=== PATIENT | female | born 2000 | race Caucasian/White ===

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

== ENCOUNTER → 2019-01-26 | Outpatient (CLI) | payer OTHER ==
[2019-01-26 17:36] LABS: BASO % 0.3 % (0.0-1.0); EOS % 0.1 % (0.0-3.0); HEMATOCRIT 41.1 % (36.0-47.0); HEMOGLOBIN 14.4 g/dl (12.0-15.5); LYMPH % 14.5 % (24.0-44.0); MEAN CORPUSCULAR VOLUME 94.3 fl (80.0-96.0); MONO # 0.7 10^3/uL (0.0-0.8); MONO % 10.6 % (0.0-5.0); NEUTROPHILS % 74.4 % (36.0-66.0); PLATELET COUNT, AUTOMATED 254 10^3/uL (150-450); RED BLOOD COUNT 4.36 10^6/uL (4.00-5.40); WHITE BLOOD COUNT 6.8 10^3/uL (4.0-10.0)
[2019-01-26 18:01] LABS: HCG, SERUM QUALITATIVE NEGATIVE (NEGATIVE)
[2019-01-26 18:04] LABS: ALBUMIN 4.7 GM/DL (3.2-5.2); ALT/SGPT 30 U/L (12-78); BILIRUBIN,TOTAL 0.8 MG/DL (0.2-1.0); BLOOD UREA NITROGEN 12 MG/DL (7-18); CALCIUM LEVEL 9.6 MG/DL (8.5-10.1); CARBON DIOXIDE LEVEL 28 MEQ/L (21-32); CHLORIDE LEVEL 102 MEQ/L (98-107); CREATININE FOR GFR 0.74 MG/DL (0.55-1.30); FREE T4 1.45 NG/DL (0.78-1.33); GLUCOSE, FASTING 89 MG/DL (70-100); H PYLORI QUALITATIVE IgG NEGATIVE (NEGATIVE); POTASSIUM SERUM 3.7 MEQ/L (3.5-5.1); SODIUM LEVEL 139 MEQ/L (136-145); THYROID STIMULATING HORMONE 0.764 uIU/ML (0.463-3.98); TOTAL PROTEIN 8.2 GM/DL (6.4-8.2)
== END ==
LOC: M LAB 16:30
PROVIDERS: ATTEND Physician Assistant Medical
DX: R11.0 Nausea (principal); R19.7 Diarrhea, unspecified

== ENCOUNTER → 2019-03-01 | Outpatient (REF) | payer OTHER ==
[2019-03-01 17:27] LABS: APPEARANCE, URINE HAZY (CLEAR); BACTERIA, URINE AUTO 1+ (NEGATIVE); BILIRUBIN, URINE AUTO NEGATIVE (NEGATIVE); BLOOD, URINE BLOOD 3+ (NEGATIVE); COLOR, URINE YELLOW (YELLOW); GLUCOSE, URINE (UA) AUTO NEGATIVE (NEGATIVE); KETONE, URINE AUTO NEGATIVE (NEGATIVE); LEUKOCYTE ESTERASE, URINE AUTO NEGATIVE (NEGATIVE); MUCUS, URINE SMALL (NEGATIVE); NITRITE, URINE AUTO NEGATIVE (NEGATIVE); PROTEIN, URINE AUTO NEGATIVE (NEGATIVE); RBC, URINE AUTO 164 /HPF (0-3); SPECIFIC GRAVITY URINE AUTO 1.021 (1.002-1.035); SQUAMOUS EPITHELIAL CELL UR AU 3 /HPF (0-6); TRANSITIONAL EPITHELIAL AUTO 1 /HPF; UROBILINOGEN, URINE AUTO 0.2 mg/dL (0.0-2.0); WBC, URINE AUTO 14 /HPF (0-3)
== END ==
LOC: M LAB REF 16:28
PROVIDERS: ATTEND Physician Assistant Medical
DX: N39.0 Urinary tract infection, site not specified (principal)

== ENCOUNTER → 2019-09-17 | Outpatient (REF) | payer OTHER ==
[2019-09-17 13:53] LABS: APPEARANCE, URINE CLOUDY (CLEAR); BACTERIA, URINE AUTO 1+ (NEGATIVE); BILIRUBIN, URINE AUTO NEGATIVE (NEGATIVE); BLOOD, URINE BLOOD 3+ (NEGATIVE); COLOR, URINE YELLOW (YELLOW); GLUCOSE, URINE (UA) AUTO NEGATIVE (NEGATIVE); KETONE, URINE AUTO NEGATIVE (NEGATIVE); LEUKOCYTE ESTERASE, URINE AUTO 2+ (NEGATIVE); MUCUS, URINE SMALL (NEGATIVE); NITRITE, URINE AUTO NEGATIVE (NEGATIVE); PROTEIN, URINE AUTO 2+ mg/dL (NEGATIVE); RBC, URINE AUTO TNTC /HPF (0-3); SPECIFIC GRAVITY URINE AUTO 1.025 (1.002-1.035); SQUAMOUS EPITHELIAL CELL UR AU 3 /HPF (0-6); TRANSITIONAL EPITHELIAL AUTO 4 /HPF; UROBILINOGEN, URINE AUTO 0.2 mg/dL (0.0-2.0); WBC, URINE AUTO TNTC /HPF (0-3)
== END ==
LOC: M LAB REF 13:08
PROVIDERS: ATTEND Physician Assistant Medical
DX: N39.0 Urinary tract infection, site not specified (principal)

== ENCOUNTER → 2020-11-18 | Outpatient (REF) | payer OTHER | LOC: M LAB REF 12:11 | PROVIDERS: ATTEND Physician Assistant Medical | DX: Z20.828 Contact with and (suspected) exposure to other viral communicable diseases (principal) ==

== ENCOUNTER → 2021-02-25 | Outpatient (CLI) | payer OTHER ==
[2021-02-25 10:53] LABS: BASO % 0.3 % (0.0-1.0); EOS % 0.3 % (0.0-3.0); HEMOGLOBIN 14.2 g/dl (12.0-15.5); LYMPH # 1.5 10^3/uL (1.5-5.0); LYMPH % 24.7 % (24.0-44.0); MEAN CORPUSCULAR HEMOGLOBIN 32.9 pg (27.0-33.0); MEAN CORPUSCULAR HGB CONC 34.6 g/dl (32.0-36.5); MEAN CORPUSCULAR VOLUME 95.1 fl (80.0-96.0); MONO # 0.6 10^3/uL (0.0-0.8); MONO % 9.9 % (2.0-8.0); NEUTROPHILS # 3.8 10^3/uL (1.5-8.5); NEUTROPHILS % 64.3 % (36.0-66.0); PLATELET COUNT, AUTOMATED 282 10^3/uL (150-450); RED BLOOD COUNT 4.31 10^6/uL (4.00-5.40); WHITE BLOOD COUNT 5.9 10^3/uL (4.0-10.0)
[2021-02-25 11:32] LABS: ALBUMIN 3.8 GM/DL (3.2-5.2); ALT/SGPT 24 U/L (12-78); BILIRUBIN,TOTAL 0.4 MG/DL (0.2-1.0); BLOOD UREA NITROGEN 14 MG/DL (7-18); C REACTIVE PROTEIN QUANTITATIV 1.46 MG/DL (0.00-0.30); CALCIUM LEVEL 9.4 MG/DL (8.5-10.1); CARBON DIOXIDE LEVEL 26 MEQ/L (21-32); CHLORIDE LEVEL 105 MEQ/L (98-107); CREATININE FOR GFR 0.63 MG/DL (0.55-1.30); GLOMERULAR FILTRATION RATE > 60.0 (>60); GLUCOSE, FASTING 100 MG/DL (70-100); POTASSIUM SERUM 3.8 MEQ/L (3.5-5.1); RHEUMATOID FACTOR QUANT < 10.0 IU/ML (<15.0); SODIUM LEVEL 136 MEQ/L (136-145); TOTAL PROTEIN 7.9 GM/DL (6.4-8.2)
[2021-02-25 11:53] LABS: ERYTHROCYTE SEDIMENTATION RATE 37 mm/hr (0-20)
[2021-02-26 17:29] LABS: ANTINUCLEAR ANTIBODIES DIRECT Negative (Negative); Lyme Disease IgG/IgM Antibodie <0.91 ISR (0.00-0.90); Lyme Disease IgM Ab Quantitati <0.80 index (0.00-0.79)
== END ==
LOC: M LAB 09:59
PROVIDERS: ATTEND Nurse Practitioner Family
DX: M12.9 Arthropathy, unspecified (principal)

== ENCOUNTER → 2022-02-03 | Outpatient (REF) | payer OTHER | LOC: M LAB REF 17:08 | PROVIDERS: ATTEND Nurse Practitioner Family | DX: R31.0 Gross hematuria (principal) ==

== ENCOUNTER → 2022-03-26 | Outpatient (REF) | payer OTHER | LOC: M LAB REF 13:00 | PROVIDERS: ATTEND Nurse Practitioner Family | DX: N89.8 Other specified noninflammatory disorders of vagina (principal) ==

== ENCOUNTER 2022-04-14 15:05 | Emergency (ER) | payer OTHER ==
[~2022-04-14] VITALS: Ht 149.9 cm; Wt 68.8 kg
[2022-04-14] MEDS ORDERED: NORE1TAB7 (15:13)
[2022-04-14] MEDS ORDERED: ANEC4CRE3 TOP (15:52)
[2022-04-14] MEDS ORDERED: IBUP-1022 PO (15:52)
[2022-04-14 16:11] VITALS: BP 137/74
== END 2022-04-14 16:11 | disposition home or self-care (01) ==
LOC: M ED 15:05
DX: S49.92XA Unspecified injury of left shoulder and upper arm, initial encounter (principal); X50.0XXA Overexertion from strenuous movement or load, initial encounter

== ENCOUNTER → 2022-04-22 | Outpatient (CLI) | payer OTHER ==
[~2022-04-22] MED LIST: ANEC4CRE3 TOP; IBUP-1022 PO; NORE1TAB7
== END ==
LOC: M SOG 09:53
PROVIDERS: ATTEND Orthopaedic Surgery Hand Surgery
DX: M25.512 Pain in left shoulder (principal)

== ENCOUNTER → 2022-08-02 | Outpatient (CLI) | payer OTHER ==
[2022-08-02 11:49] LABS: BASO % 0.3 % (0.0-1.0); HEMATOCRIT 38.9 % (36.0-47.0); HEMOGLOBIN 13.6 g/dl (12.0-15.5); LYMPH # 0.9 10^3/uL (1.5-5.0); MEAN CORPUSCULAR HEMOGLOBIN 33.7 pg (27.0-33.0); MEAN CORPUSCULAR VOLUME 96.5 fl (80.0-96.0); MONO # 0.4 10^3/uL (0.0-0.8); MONO % 5.3 % (2.0-8.0); NEUTROPHILS # 5.9 10^3/uL (1.5-8.5); NEUTROPHILS % 82.1 % (36.0-66.0); PLATELET COUNT, AUTOMATED 262 10^3/uL (150-450); RED BLOOD COUNT 4.03 10^6/uL (4.00-5.40); WHITE BLOOD COUNT 7.2 10^3/uL (4.0-10.0)
[2022-08-02 12:21] LABS: ALBUMIN 3.9 GM/DL (3.2-5.2); ALT/SGPT 22 U/L (12-78); BILIRUBIN,TOTAL 0.6 MG/DL (0.2-1.0); BLOOD UREA NITROGEN 11 MG/DL (7-18); C REACTIVE PROTEIN QUANTITATIV 1.28 MG/DL (0.00-0.30); CALCIUM LEVEL 9.6 MG/DL (8.5-10.1); CARBON DIOXIDE LEVEL 24 MEQ/L (21-32); CHLORIDE LEVEL 106 MEQ/L (98-107); CREATININE FOR GFR 0.72 MG/DL (0.55-1.30); GLOMERULAR FILTRATION RATE > 60.0 (>60); GLUCOSE, FASTING 100 MG/DL (70-100); POTASSIUM SERUM 3.9 MEQ/L (3.5-5.1); RHEUMATOID FACTOR QUANT < 10.0 IU/ML (<15.0); SODIUM LEVEL 137 MEQ/L (136-145); URIC ACID 4.2 MG/DL (2.6-6.0)
[2022-08-02 12:23] LABS: ERYTHROCYTE SEDIMENTATION RATE 25 mm/hr (0-20)
[2022-08-02 19:27] LABS: GC DNA AMPLIFICATION NEGATIVE (NEGATIVE)
== END ==
LOC: M LAB 11:04
PROVIDERS: ATTEND Nurse Practitioner Family
DX: Z01.419 Encounter for gynecological examination (general) (routine) without abnormal findings (principal); M12.9 Arthropathy, unspecified; Z12.4 Encounter for screening for malignant neoplasm of cervix

== ENCOUNTER → 2022-12-17 | Outpatient (CLI) | payer OTHER ==
[2022-12-17 14:01] LABS: HEMATOCRIT 38.6 % (36.0-47.0); HEMOGLOBIN 13.9 g/dl (12.0-15.5); MEAN CORPUSCULAR HEMOGLOBIN 34.2 pg (27.0-33.0); MEAN CORPUSCULAR VOLUME 95.1 fl (80.0-96.0); PLATELET COUNT, AUTOMATED 264 10^3/uL (150-450); RED BLOOD COUNT 4.06 10^6/uL (4.00-5.40); WHITE BLOOD COUNT 6.3 10^3/uL (4.0-10.0)
[2022-12-17 14:42] LABS: ALBUMIN 3.4 G/DL (3.2-5.2); ALKALINE PHOSPHATASE 56 U/L (46-116); ALT/SGPT 19 U/L (7.0-40); AST/SGOT 18 U/L (<34); BILIRUBIN,TOTAL 0.8 MG/DL (0.3-1.2); BLOOD UREA NITROGEN 10 MG/DL (9-23); CALCIUM LEVEL 9.2 MG/DL (8.5-10.1); CARBON DIOXIDE LEVEL 25 MMOL/L (20-31); CHLORIDE LEVEL 102 MMOL/L (98-107); CREATININE FOR GFR 0.59 MG/DL (0.55-1.30); GLOMERULAR FILTRATION RATE > 60.0 (>60); GLUCOSE, FASTING 112 MG/DL (60-100); POTASSIUM SERUM 3.5 MMOL/L (3.5-5.1); SODIUM LEVEL 136 MMOL/L (136-145); TOTAL PROTEIN 6.9 G/DL (5.7-8.2)
[2022-12-17 14:57] LABS: HEPATITIS B SURFACE ANTIGEN NEGATIVE (NEGATIVE)
[2022-12-17 15:10] LABS: HIV 1&2 SCREEN CENTAUR NEGATIVE (NEGATIVE)
[2022-12-17 15:17] LABS: HEPATITIS B CORE ANTIBODY IGM NEGATIVE (NEGATIVE); HEPATITIS C VIRUS ABY INDEX < 0.0 INDEX (<0.8)
== END ==
LOC: M LAB 12:40
PROVIDERS: ATTEND Physician Assistant
DX: Z79.899 Other long term (current) drug therapy (principal)

== ENCOUNTER → 2023-02-25 | Outpatient (REF) | payer OTHER ==
[~2023-02-25] MED LIST changes: +ERGO500029; +OMEG10002 PO; +VITMTA PO
[2023-02-25 12:50] LABS: C REACTIVE PROTEIN QUANTITATIV 0.9 MG/DL (<1.0)
[2023-02-25 12:52] LABS: PHOSPHORUS LEVEL 3.4 MG/DL (2.5-4.9)
[2023-02-25 12:54] LABS: TOTAL 25(OH) VITAMIN D 15.5 NG/ML (20.0-100.0)
== END ==
LOC: M SFHCRHEU 10:37
PROVIDERS: ATTEND Internal Medicine
DX: M25.50 Pain in unspecified joint (principal); M79.10 Myalgia, unspecified site

== ENCOUNTER → 2023-02-25 | Outpatient (CLI) | payer OTHER ==
[~2023-02-25] MED LIST changes: -ERGO500029; -OMEG10002 PO; -VITMTA PO
== END ==
LOC: M RAD 13:35
PROVIDERS: ATTEND Internal Medicine
DX: M25.50 Pain in unspecified joint (principal)

== ENCOUNTER 2023-03-10 13:18 | Emergency (ER) | payer OTHER ==
[~2023-03-10] VITALS: Ht 149.9 cm; Wt 70.5 kg
[2023-03-10] MEDS ORDERED: VITMTA PO (14:46)
[2023-03-10] MEDS ORDERED: ERGO500029 (14:46)
[2023-03-10] MEDS ORDERED: OMEG10002 PO (14:46)
[2023-03-10 15:59] LABS: BLOOD UREA NITROGEN 15 MG/DL (9-23); CALCIUM LEVEL 9.5 MG/DL (8.5-10.1); CARBON DIOXIDE LEVEL 24 MMOL/L (20-31); CHLORIDE LEVEL 105 MMOL/L (98-107); CREATININE FOR GFR 0.59 MG/DL (0.55-1.30); GLOMERULAR FILTRATION RATE > 60.0 (>60); GLUCOSE, FASTING 78 MG/DL (60-100); POTASSIUM SERUM 3.9 MMOL/L (3.5-5.1); SODIUM LEVEL 139 MMOL/L (136-145)
[2023-03-10 16:30] VITALS: BP 140/92
== END 2023-03-10 16:32 | disposition home or self-care (01) ==
LOC: M ED 13:18
DX: S83.92XA Sprain of unspecified site of left knee, initial encounter (principal); X50.0XXA Overexertion from strenuous movement or load, initial encounter; Y92.89 Other specified places as the place of occurrence of the external cause; Y93.89 Activity, other specified; Y99.0 Civilian activity done for income or pay; M79.10 Myalgia, unspecified site; L40.9 Psoriasis, unspecified; Z79.899 Other long term (current) drug therapy; Z79.3 Long term (current) use of hormonal contraceptives

== ENCOUNTER → 2023-05-24 | Outpatient (CLI) | payer OTHER ==
[~2023-05-24] MED LIST changes: +ERGO500029; +OMEG10002 PO; +VITMTA PO
== END ==
LOC: M LAB 08:33
PROVIDERS: ATTEND Internal Medicine
DX: E55.9 Vitamin D deficiency, unspecified (principal)

== ENCOUNTER 2023-09-10 19:40 | Emergency (ER) | payer OTHER ==
[2023-09-10 23:01] VITALS: BP 130/76; TEMP 98.3; O2SAT 100
== END 2023-09-10 23:01 | disposition home or self-care (01) ==
LOC: M ED 19:40
DX: R05.9 Cough, unspecified (principal); R09.81 Nasal congestion; Z79.899 Other long term (current) drug therapy

== ENCOUNTER → 2023-12-05 | Outpatient (CLI) | payer OTHER | LOC: M LAB 11:48 | PROVIDERS: ATTEND Internal Medicine | DX: E55.9 Vitamin D deficiency, unspecified (principal) ==

== ENCOUNTER → 2023-12-06 | Outpatient (REF) | payer OTHER | LOC: M SFHCRHEU 07:48 | PROVIDERS: ATTEND Internal Medicine | DX: E55.9 Vitamin D deficiency, unspecified (principal) ==

== ENCOUNTER 2024-03-07 14:58 | Inpatient (IN) | payer MEDICAID, OTHER ==
[~2024-03-07] VITALS: Ht 149.9 cm; Wt 70.7 kg
[2024-03-07 15:57] LABS: HEMATOCRIT 40.9 % (36.0-47.0); HEMOGLOBIN 14.6 g/dl (12.0-15.5); MEAN CORPUSCULAR HEMOGLOBIN 34.1 pg (27.0-33.0); MEAN CORPUSCULAR HGB CONC 35.7 g/dl (32.0-36.5); MEAN CORPUSCULAR VOLUME 95.6 fl (80.0-96.0); PLATELET COUNT, AUTOMATED 263 10^3/uL (150-450); RED BLOOD COUNT 4.28 10^6/uL (4.00-5.40); WHITE BLOOD COUNT 10.8 10^3/uL (4.0-10.0)
[2024-03-07 16:18] LABS: ETHYL ALCOHOL (ETHANOL) < 0.003 % (0.000-0.010)
[2024-03-07 16:20] LABS: ALBUMIN 4.3 G/DL (3.2-5.2); ALKALINE PHOSPHATASE 71 U/L (46-116); ALT/SGPT 30 U/L (7.0-40); AST/SGOT 20 U/L (<34); BILIRUBIN,DIRECT 0.3 MG/DL (<0.4); BILIRUBIN,TOTAL 0.9 MG/DL (0.3-1.2); BLOOD UREA NITROGEN 16 MG/DL (9-23); CALCIUM LEVEL 10.3 MG/DL (8.5-10.1); CARBON DIOXIDE LEVEL 24 MMOL/L (20-31); CHLORIDE LEVEL 105 MMOL/L (98-107); CREATININE FOR GFR 0.68 MG/DL (0.55-1.30); GLOMERULAR FILTRATION RATE > 60.0 (>60); GLUCOSE, FASTING 114 MG/DL (60-100); POTASSIUM SERUM 3.4 MMOL/L (3.5-5.1); SALICYLATE LEVEL < 3.0 MG/DL (<30); SODIUM LEVEL 138 MMOL/L (136-145); TOTAL PROTEIN 7.9 G/DL (5.7-8.2)
[2024-03-07 16:22] LABS: THYROID STIMULATING HORMONE 1.365 uIU/ML (0.55-4.78)
[2024-03-07 16:29] LABS: HCG, SERUM QUALITATIVE NEGATIVE (NEGATIVE)
[2024-03-07 22:08] LABS: AMPHETAMINES LEVEL URINE NEGATIVE (NEGATIVE); BARBITURATES URINE NEGATIVE (NEGATIVE); BENZODIAZEPINES URINE NEGATIVE (NEGATIVE); COCAINE METABOLITE URINE NEGATIVE (NEGATIVE); METHADONE URINE NEGATIVE (NEGATIVE); OPIATES URINE NEGATIVE (NEGATIVE); PHENCYCLIDINE URINE NEGATIVE (NEGATIVE)
[2024-03-07 22:11] LABS: CANNABINOIDS URINE POSITIVE (NEGATIVE)
[2024-03-07] MEDS ORDERED: MAALOX 30 ML SUSP *UDC PO PRN (23:15)
[2024-03-08] MEDS ORDERED: RA A EXT (00:03)
[2024-03-08] MEDS ORDERED: MULT-40 PO (00:03)
[2024-03-08] MEDS ORDERED: VITA500045 PO (00:03)
[2024-03-08] MEDS ORDERED: JUNETAB PO (00:03)
[2024-03-08] MEDS ORDERED: HOME MED LIST COMPLETE! XX SCH (00:05)
[2024-03-08 00:48] VITALS: BP 143/81; TEMP 98.8; O2SAT 97
[2024-03-08 06:20] VITALS: BP 133/84; TEMP 98; O2SAT 98
[2024-03-08] MEDS: PALIPERIDONE 3MG ER TAB (INVEGA) PO SCH (09:54)
[2024-03-08 12:54] LABS: BLOOD UREA NITROGEN 11 MG/DL (9-23); CALCIUM LEVEL 9.8 MG/DL (8.5-10.1); CARBON DIOXIDE LEVEL 24 MMOL/L (20-31); CHLORIDE LEVEL 101 MMOL/L (98-107); GLOMERULAR FILTRATION RATE > 60.0 (>60); GLUCOSE, FASTING 84 MG/DL (60-100); POTASSIUM SERUM 3.7 MMOL/L (3.5-5.1); SODIUM LEVEL 136 MMOL/L (136-145)
[2024-03-08] MEDS: OLANZapine 5 MG TAB PO PRN (13:21)
[2024-03-08 16:47] VITALS: BP 124/87; TEMP 97.6; O2SAT 99
[2024-03-09 06:39] VITALS: BP 136/72; TEMP 99; O2SAT 99
[2024-03-09 07:58] LABS: CHOLESTEROL RISK RATIO 4.34 (<5); LDL CHOLESTEROL 140.4 MG/DL (<100)
[2024-03-09] MEDS: diphenhydrAMINE 25MG CAP PO PRN (20:20)
[2024-03-10 05:45] VITALS: BP 125/83; TEMP 98.2; O2SAT 100
[2024-03-10] MEDS: PALIPERIDONE PAL 234MG/1.5ML INJ (INVEGA)(FREE PSY INPT ONLY) IM ONE (09:00)
[2024-03-10 16:16] VITALS: BP 125/75; TEMP 97.4; O2SAT 100
[2024-03-10] MEDS: ACETAMINOPHEN TAB 650MG DOSE (2X325MG) PO PRN (20:04)
[2024-03-10] MEDS: QUEtiapine FUMARATE 25 MG TAB PO SCH (20:05)
[2024-03-11 06:32] VITALS: BP_SYST 122; BP_SYST 163; BP_DIAS 85; BP_DIAS 96; TEMP 99; O2SAT 100
[2024-03-11] MEDS ORDERED: PALIPERIDONE PAL 234MG/1.5ML INJ (INVEGA)(FREE PSY INPT ONLY) IM ONE (09:00)
[2024-03-11] MEDS: SERTRALINE HCL 25 MG TABLET PO SCH (09:31)
[2024-03-11] MEDS: PALIPERIDONE PAL 234MG/1.5ML INJ (INVEGA)(FREE PSY INPT ONLY) IM ONE (11:00)
[2024-03-11 18:12] VITALS: BP 133/84; TEMP 98; O2SAT 99
[2024-03-11] MEDS: traZODone 50 MG TAB PO PRN (22:58)
[2024-03-12 05:56] VITALS: BP 139/74; TEMP 99; O2SAT 98
[2024-03-12] MEDS: PALIPERIDONE PAL 234MG/1.5ML INJ (INVEGA)(FREE PSY INPT ONLY) IM ONE (09:00)
[2024-03-12] MEDS: MOM 30ML SUSPENSION UDC PO PRN (12:34)
[2024-03-12 18:00] VITALS: BP 128/82; TEMP 97.9; O2SAT 100
[2024-03-13 06:55] VITALS: BP 123/75; TEMP 97.9; O2SAT 95
[2024-03-13] MEDS: SERTRALINE HCL 50 MG TAB PO SCH (08:24)
[2024-03-13 16:28] VITALS: BP 134/79; TEMP 96.5; O2SAT 100
[2024-03-14 06:24] VITALS: BP 115/72; TEMP 98.2; O2SAT 96
[2024-03-14] MEDS ORDERED: MIRALAX *UNIT DOSE* 17GM PACKET PO PRN (11:50)
[2024-03-14 16:05] VITALS: BP 125/77; TEMP 96.2; O2SAT 100
[2024-03-15 06:16] VITALS: BP 132/72; TEMP 99.2; O2SAT 97
[2024-03-15] MEDS: IBUPROFEN 400MG TAB PO PRN (08:30)
[2024-03-15 18:53] VITALS: BP 120/75; TEMP 98.5; O2SAT 96
[2024-03-16 06:37] VITALS: BP 120/65; TEMP 99; O2SAT 96
[2024-03-16] MEDS ORDERED: PALIPERIDONE PAL 156MG/1ML INJ(INVEGA)(FREE PSY INPT ONLY) IM SCH (07:00)
[2024-03-16] MEDS: PALIPERIDONE PAL 156MG/1ML INJ(INVEGA)(FREE PSY INPT ONLY) IM ONE (10:55)
[2024-03-16 16:02] VITALS: BP 119/64; TEMP 98; O2SAT 99
[2024-03-17 06:11] VITALS: BP 111/64; TEMP 98; O2SAT 98
[2024-03-17 18:00] VITALS: BP 119/65; TEMP 97.4; O2SAT 99
[2024-03-18 06:17] VITALS: BP 132/87; TEMP 99.4; O2SAT 98
[2024-03-18 18:00] VITALS: BP 113/58; TEMP 97.2; O2SAT 99
[2024-03-19 06:15] VITALS: BP 131/73; TEMP 99.5; O2SAT 97
[2024-03-19 18:49] VITALS: BP 129/67; TEMP 98
[2024-03-20 06:12] VITALS: BP 123/65; TEMP 97.6; O2SAT 98
[2024-03-20] MEDS ORDERED: SERT50TA29 PO (10:15)
[2024-03-20] MEDS ORDERED: QUET1TAB17 PO (10:15)
[2024-03-20] MEDS ORDERED: TRAZ-252 PO (10:15)
[2024-03-20] MEDS ORDERED: INVE156I IM (10:15)
[2024-03-20] MEDS ORDERED: PALI1TAB2 PO (10:15)
== END 2024-03-20 12:46 | disposition home or self-care (01) | DRG 751 ==
LOC: M ED 14:58 → M ED INP 23:14 → M PSY 03-08 00:21
PROVIDERS: ADMIT Psychiatry & Neurology Psychiatry; ATTEND Student in an Organized Health Care Education/Training Program
DX: F29 Unspecified psychosis not due to a substance or known physiological condition (principal); F31.5 Bipolar disorder, current episode depressed, severe, with psychotic features; E83.52 Hypercalcemia; F25.0 Schizoaffective disorder, bipolar type; F12.10 Cannabis abuse, uncomplicated; F17.210 Nicotine dependence, cigarettes, uncomplicated; L40.9 Psoriasis, unspecified; E86.0 Dehydration; E87.6 Hypokalemia; F41.9 Anxiety disorder, unspecified; K59.00 Constipation, unspecified; Z79.899 Other long term (current) drug therapy; Z56.0 Unemployment, unspecified; Z63.4 Disappearance and death of family member

== ENCOUNTER → 2024-08-14 | Outpatient (REF) | payer MEDICAID ==
[~2024-08-14] MED LIST changes: +INVE156I IM; +JUNETAB PO; +MULT-40 PO; +PALI1TAB2 PO; +QUET1TAB17 PO; +RA A EXT; +SERT50TA29 PO; +TRAZ-252 PO; +VITA500045 PO
[2024-08-14 20:38] LABS: GC DNA AMPLIFICATION NEGATIVE (NEGATIVE)
== END ==
LOC: M LAB REF 17:25
PROVIDERS: ATTEND Nurse Practitioner Family
DX: Z11.3 Encounter for screening for infections with a predominantly sexual mode of transmission (principal)

== ENCOUNTER → 2024-08-15 | Outpatient (CLI) | payer OTHER ==
[2024-08-15 10:31] LABS: BASO % 0.2 % (0.0-1.0); EOS # 0.1 10^3/uL (0.0-0.5); EOS % 0.8 % (0.0-3.0); HEMATOCRIT 36.6 % (36.0-47.0); HEMOGLOBIN 12.8 g/dl (12.0-15.5); LYMPH % 14.8 % (24.0-44.0); MEAN CORPUSCULAR HEMOGLOBIN 33.3 pg (27.0-33.0); MEAN CORPUSCULAR VOLUME 95.3 fl (80.0-96.0); MONO # 0.6 10^3/uL (0.0-0.8); MONO % 9.7 % (2.0-8.0); NEUTROPHILS # 4.8 10^3/uL (1.5-8.5); PLATELET COUNT, AUTOMATED 209 10^3/uL (150-450); RED BLOOD COUNT 3.84 10^6/uL (4.00-5.40); WHITE BLOOD COUNT 6.5 10^3/uL (4.0-10.0)
[2024-08-15 10:49] LABS: HEMOGLOBIN A1c 4.7 % (4.0-6.0)
[2024-08-15 11:01] LABS: ALBUMIN 3.6 G/DL (3.2-5.2); ALKALINE PHOSPHATASE 85 U/L (35-104); ALT/SGPT 55 U/L (7.0-40); AST/SGOT 31 U/L (<34); BILIRUBIN,TOTAL 0.5 MG/DL (0.3-1.2); BLOOD UREA NITROGEN 14 MG/DL (9-23); CALCIUM LEVEL 9.7 MG/DL (8.5-10.1); CARBON DIOXIDE LEVEL 24 MMOL/L (20-31); CHLORIDE LEVEL 105 MMOL/L (98-107); CHOLESTEROL LEVEL 196 MG/DL (<200); CHOLESTEROL RISK RATIO 3.12 (<5); CREATININE FOR GFR 0.59 MG/DL (0.55-1.30); FREE T4 0.99 NG/DL (0.89-1.76); GLOMERULAR FILTRATION RATE > 60.0 (>60); GLUCOSE, FASTING 109 MG/DL (60-100); HDL CHOLESTEROL 62.7 MG/DL (>40); LDL CHOLESTEROL 109.5 MG/DL (<100); NON-HDL-C 133.3 MG/DL; POTASSIUM SERUM 3.7 MMOL/L (3.5-5.1); SODIUM LEVEL 139 MMOL/L (136-145); TOTAL PROTEIN 7.2 G/DL (5.7-8.2); TRIGLYCERIDES LEVEL 119 MG/DL (<150)
[2024-08-15 11:02] LABS: THYROID STIMULATING HORMONE 2.616 uIU/ML (0.55-4.78); TOTAL 25(OH) VITAMIN D 8.4 NG/ML (20.0-100.0)
[2024-08-15 11:04] LABS: HCG, SERUM QUALITATIVE NEGATIVE (NEGATIVE)
== END ==
LOC: M LAB 09:37
PROVIDERS: ATTEND Nurse Practitioner Family
DX: R63.5 Abnormal weight gain (principal)

== ENCOUNTER 2025-06-07 11:48 | Inpatient (IN) | payer OTHER ==
[~2025-06-07] VITALS: Ht 149.9 cm; Wt 77.0 kg
[~2025-06-07 11:48] MED LIST changes: +ERGO125013 PO; -IBUP-1022 PO; +IBUP600T42 PO; -VITA500045 PO
[2025-06-07 12:37] LABS: PLATELET COUNT, AUTOMATED 254 10^3/uL (150-450)
[2025-06-07 13:05] LABS: AMPHETAMINES LEVEL URINE NEGATIVE (NEGATIVE); BENZODIAZEPINES URINE NEGATIVE (NEGATIVE)
[2025-06-07 13:06] LABS: BARBITURATES URINE NEGATIVE (NEGATIVE); COCAINE METABOLITE URINE NEGATIVE (NEGATIVE); ETHYL ALCOHOL (ETHANOL) < 0.003 % (0.000-0.010); METHADONE URINE NEGATIVE (NEGATIVE); OPIATES URINE NEGATIVE (NEGATIVE); PHENCYCLIDINE URINE NEGATIVE (NEGATIVE)
[2025-06-07 13:07] LABS: SALICYLATE LEVEL < 3.0 MG/DL (<30)
[2025-06-07 13:08] LABS: ALT/SGPT 82 U/L (7.0-40); AST/SGOT 42 U/L (<34); CALCIUM LEVEL 9.7 MG/DL (8.5-10.1); CARBON DIOXIDE LEVEL 26 MMOL/L (20-31); CHLORIDE LEVEL 103 MMOL/L (98-107); CREATININE FOR GFR 0.61 MG/DL (0.55-1.30); GLOMERULAR FILTRATION RATE > 90.0 (>60); POTASSIUM SERUM 3.6 MMOL/L (3.5-5.1); SODIUM LEVEL 141 MMOL/L (136-145)
[2025-06-07 13:10] LABS: CANNABINOIDS URINE POSITIVE (NEGATIVE)
[2025-06-07] MEDS ORDERED: MAALOX 30 ML SUSP *UDC PO PRN (14:20)
[2025-06-07] MEDS ORDERED: IBUPROFEN 400 MG TAB PO PRN (14:20)
[2025-06-07] MEDS ORDERED: VITA100093 PO (15:02)
[2025-06-07] MEDS ORDERED: HOME MED LIST COMPLETE! XX SCH (15:05)
[2025-06-07 16:07] LABS: HCG, SERUM QUALITATIVE NEGATIVE (NEGATIVE)
[2025-06-07 17:05] VITALS: BP 141/81; TEMP 97.9; O2SAT 100
[2025-06-08 06:28] VITALS: BP 121/73; TEMP 98.5; O2SAT 100
[2025-06-08] MEDS: ESCITALOPRAM OXALATE 5 MG TABLET PO SCH (11:45)
[2025-06-08 17:06] VITALS: BP 125/85; TEMP 97.9; O2SAT 99
[2025-06-08] MEDS: BACTRIM 160MG/800MG DS TAB PO SCH (20:30)
[2025-06-09 06:34] VITALS: BP 123/67; TEMP 98.5; O2SAT 100
[2025-06-09] MEDS: busPIRone 5 MG TAB PO SCH (10:46)
[2025-06-09 15:30] VITALS: BP 125/69; TEMP 97.9; O2SAT 99
[2025-06-10 06:26] VITALS: BP 142/67; TEMP 96.8; O2SAT 97
[2025-06-10] MEDS: ESCITALOPRAM OXALATE 10 MG TABLET PO SCH (08:08)
[2025-06-10 14:47] VITALS: BP 140/78; TEMP 97.4; O2SAT 98
[2025-06-10] MEDS: busPIRone 5 MG TAB PO SCH (20:21)
[2025-06-11 06:32] VITALS: BP 150/86; TEMP 98.1; O2SAT 97
[2025-06-11 15:09] VITALS: BP 128/81; TEMP 97.8; O2SAT 98
[2025-06-12 06:18] VITALS: BP 132/64; TEMP 98.4; O2SAT 98
[2025-06-12 16:24] VITALS: BP 133/86; TEMP 97.6; O2SAT 97
[2025-06-12] MEDS: SERTRALINE HCL 25 MG TABLET PO SCH (20:28)
[2025-06-12] MEDS: MOM 30 ML SUSPENSION UDC PO PRN (20:38)
[2025-06-13] MEDS: traZODone 50 MG TAB PO PRN (00:42)
[2025-06-13 06:20] VITALS: BP 128/82; TEMP 97.6; O2SAT 96
[2025-06-13 15:32] VITALS: BP 150/78; TEMP 97.5; O2SAT 98
[2025-06-13] MEDS: ACETAMINOPHEN 325 MG TAB PO PRN (15:56)
[2025-06-13] MEDS: SERTRALINE HCL 50 MG TAB PO SCH (23:02)
[2025-06-13] MEDS: traZODone 100 MG TAB PO SCH (23:02)
[2025-06-14 06:35] VITALS: BP 111/58; TEMP 97; O2SAT 98
[2025-06-14 16:37] VITALS: BP 140/80; TEMP 98.4; O2SAT 99
[2025-06-14] MEDS: SERTRALINE 100 MG TAB PO SCH (20:47)
[2025-06-15 13:32] VITALS: BP 134/83; TEMP 97.9; O2SAT 99
[2025-06-15 15:00] VITALS: BP 130/80; TEMP 98.1; O2SAT 98
[2025-06-16 06:35] VITALS: BP 164/84; TEMP 98; O2SAT 100
[2025-06-16] MEDS: VITAMIN D 50,000 UNITS CAPSULE (ERGOCALCIFEROL 1.25MG) PO SCH (08:35)
[2025-06-16 15:14] VITALS: BP 141/91; TEMP 97.6; O2SAT 100
[2025-06-17] MEDS ORDERED: ZOLO100T PO (10:16)
[2025-06-17] MEDS ORDERED: HYDR50TA70 PO (10:16)
[2025-06-17] MEDS ORDERED: TRAZ-257 PO (10:16)
[2025-06-17] MEDS ORDERED: ERGO500029 PO (10:16)
[2025-06-18] MEDS ORDERED: DICL100G10 TOP (11:16)
[2025-06-18] MEDS ORDERED: TRAZ-257 PO (11:16)
[2025-06-18] MEDS ORDERED: ZOLO100T PO (11:16)
[2025-06-18] MEDS ORDERED: IBUP600T42 PO (11:16)
[2025-06-18] MEDS ORDERED: VITA500038 PO (11:16)
[2025-06-18] MEDS ORDERED: HYDR50TA70 PO (11:16)
== END 2025-06-17 12:03 | disposition home or self-care (01) | DRG 751 ==
LOC: M ED 11:48 → M ED INP 14:18 → M PSY 16:58
PROVIDERS: ADMIT General Practice; ATTEND Psychiatry & Neurology Psychiatry
DX: F32.1 Major depressive disorder, single episode, moderate (principal); L03.116 Cellulitis of left lower limb; R45.851 Suicidal ideations; F43.21 Adjustment disorder with depressed mood; L40.9 Psoriasis, unspecified; L02.412 Cutaneous abscess of left axilla; F41.9 Anxiety disorder, unspecified; Z59.01 Sheltered homelessness; Z56.0 Unemployment, unspecified; Z63.5 Disruption of family by separation and divorce

== ENCOUNTER 2025-06-17 17:05 | Emergency (ER) | payer OTHER ==
[~2025-06-17] VITALS: Ht 149.9 cm; Wt 77.4 kg
[~2025-06-17 17:05] MED LIST changes: +ERGO500029 PO; +HYDR50TA70 PO; +TRAZ-257 PO; +VITA100093 PO; +ZOLO100T PO
[2025-06-17 17:11] VITALS: BP 131/89; O2SAT 100
[2025-06-17 17:30] VITALS: TEMP 98.8
[2025-06-18] MEDS ORDERED: HYDR50TA70 PO (11:16)
[2025-06-18] MEDS ORDERED: TRAZ-257 PO (11:16)
[2025-06-18] MEDS ORDERED: DICL100G10 TOP (11:16)
[2025-06-18] MEDS ORDERED: ZOLO100T PO (11:16)
[2025-06-18] MEDS ORDERED: IBUP600T42 PO (11:16)
[2025-06-18] MEDS ORDERED: VITA500038 PO (11:16)
== END 2025-06-17 19:31 | disposition home or self-care (01) ==
LOC: M ED 17:05
DX: Z76.5 Malingerer [conscious simulation] (principal); F32.A Depression, unspecified; F12.10 Cannabis abuse, uncomplicated; Z79.1 Long term (current) use of non-steroidal anti-inflammatories (NSAID); Z79.899 Other long term (current) drug therapy

== ENCOUNTER 2025-06-18 01:01 | Emergency (ER) | payer OTHER ==
[~2025-06-18] VITALS: Ht 149.9 cm; Wt 76.3 kg
[2025-06-18] MEDS: MIDAZOLAM 5 MG/ML 1 ML VIAL IM ONE (02:52)
[2025-06-18] MEDS: diphenhydrAMINE 50 MG/ML VIAL IM ONE (04:08)
[2025-06-18] MEDS: HALOPERIDOL LACTATE 5 MG/ML VIAL IM STA (04:08)
[2025-06-18 05:16] LABS: VENOUS BASE EXCESS 0.5 (-2.0-2.0); VENOUS HCO3 25.4 MMOL/L (23.0-27.0); VENOUS O2 SATURATION 94.5 % (60.0-80.0); VENOUS PARTIAL PRESSURE CO2 41.9 mmHg (38.0-50.0); VENOUS PARTIAL PRESSURE O2 72.7 mmHg (30.0-50.0); VENOUS PH 7.401 UNITS (7.330-7.430); VENOUS STANDARD HCO3 24.9 MMOL/L; VENOUS TOTAL CO2 26.7 MMOL/L (24.0-28.0)
[2025-06-18 05:20] LABS: BASO # 0.0 10^3/uL (0.0-0.2); BASO % 0.5 % (0.0-1.0); EOS # 0.1 10^3/uL (0.0-0.5); EOS % 0.6 % (0.0-3.0); LYMPH # 1.8 10^3/uL (1.5-5.0); LYMPH % 21.1 % (24.0-44.0); MONO # 1.1 10^3/uL (0.0-0.8); MONO % 12.7 % (2.0-8.0); NEUTROPHILS # 5.6 10^3/uL (1.5-8.5); NEUTROPHILS % 64.9 % (36.0-66.0); PLATELET COUNT, AUTOMATED 284 10^3/uL (150-450)
[2025-06-18 05:50] LABS: ALT/SGPT 66 U/L (7.0-40); AST/SGOT 52 U/L (<34); CALCIUM LEVEL 9.9 MG/DL (8.5-10.1); CARBON DIOXIDE LEVEL 26 MMOL/L (20-31); CHLORIDE LEVEL 102 MMOL/L (98-107); CREATININE FOR GFR 0.60 MG/DL (0.55-1.30); GLOMERULAR FILTRATION RATE > 90.0 (>60); POTASSIUM SERUM 4.3 MMOL/L (3.5-5.1); SALICYLATE LEVEL < 3.0 MG/DL (<30); SODIUM LEVEL 140 MMOL/L (136-145)
[2025-06-18 05:52] LABS: ETHYL ALCOHOL (ETHANOL) < 0.003 % (0.000-0.010)
[2025-06-18 05:59] LABS: HCG, SERUM QUALITATIVE NEGATIVE (NEGATIVE)
[2025-06-18 06:11] LABS: MAGNESIUM LEVEL 1.9 MG/DL (1.8-2.4)
[2025-06-18 06:12] LABS: CPK CREATINE PHOSPHOKINASE 357 U/L (34-145)
[2025-06-18 07:12] LABS: AMPHETAMINES LEVEL URINE NEGATIVE (NEGATIVE); BARBITURATES URINE NEGATIVE (NEGATIVE); COCAINE METABOLITE URINE NEGATIVE (NEGATIVE); METHADONE URINE NEGATIVE (NEGATIVE); OPIATES URINE NEGATIVE (NEGATIVE); PHENCYCLIDINE URINE NEGATIVE (NEGATIVE)
[2025-06-18 07:13] LABS: BENZODIAZEPINES URINE POSITIVE (NEGATIVE); CANNABINOIDS URINE POSITIVE (NEGATIVE)
[2025-06-18] MEDS ORDERED: TRAZ-257 PO (11:16)
[2025-06-18] MEDS ORDERED: DICL100G10 TOP (11:16)
[2025-06-18] MEDS ORDERED: ZOLO100T PO (11:16)
[2025-06-18] MEDS ORDERED: VITA500038 PO (11:16)
[2025-06-18] MEDS ORDERED: IBUP600T42 PO (11:16)
[2025-06-18] MEDS ORDERED: HYDR50TA70 PO (11:16)
[2025-06-18] MEDS ORDERED: HOME MED LIST COMPLETE! XX SCH (11:20)
[2025-06-18] MEDS ORDERED: IBUPROFEN 400 MG TAB PO PRN (18:20)
[2025-06-18] MEDS ORDERED: traZODone 50 MG TAB PO PRN (18:20)
[2025-06-18] MEDS ORDERED: MOM 30 ML SUSPENSION UDC PO PRN (18:20)
[2025-06-18] MEDS ORDERED: ACETAMINOPHEN 325 MG TAB PO PRN (18:20)
[2025-06-18] MEDS ORDERED: MAALOX 30 ML SUSP *UDC PO PRN (18:20)
[2025-06-18 20:39] LABS: CALCIUM LEVEL 9.8 MG/DL (8.5-10.1); CARBON DIOXIDE LEVEL 26 MMOL/L (20-31); CHLORIDE LEVEL 101 MMOL/L (98-107); CREATININE FOR GFR 0.88 MG/DL (0.55-1.30); GLOMERULAR FILTRATION RATE > 90.0 (>60); POTASSIUM SERUM 3.8 MMOL/L (3.5-5.1); SODIUM LEVEL 140 MMOL/L (136-145)
[2025-06-18 20:40] LABS: MAGNESIUM LEVEL 1.8 MG/DL (1.8-2.4); PHOSPHORUS LEVEL 3.2 MG/DL (2.5-4.9)
[2025-06-18] MEDS: NS (Normal Saline) 0.9% 1,000 ML IV ONE ×2 (22:26→23:15)
[2025-06-19 06:04] LABS: BASO # 0.0 10^3/uL (0.0-0.2); BASO % 0.5 % (0.0-1.0); EOS # 0.1 10^3/uL (0.0-0.5); EOS % 1.4 % (0.0-3.0); LYMPH # 1.7 10^3/uL (1.5-5.0); LYMPH % 30.2 % (24.0-44.0); MONO # 0.7 10^3/uL (0.0-0.8); MONO % 11.8 % (2.0-8.0); NEUTROPHILS # 3.1 10^3/uL (1.5-8.5); NEUTROPHILS % 55.9 % (36.0-66.0); PLATELET COUNT, AUTOMATED 243 10^3/uL (150-450)
[2025-06-19 06:32] LABS: CALCIUM LEVEL 8.8 MG/DL (8.5-10.1); CARBON DIOXIDE LEVEL 25 MMOL/L (20-31); CHLORIDE LEVEL 105 MMOL/L (98-107); CREATININE FOR GFR 0.56 MG/DL (0.55-1.30); GLOMERULAR FILTRATION RATE > 90.0 (>60); POTASSIUM SERUM 3.8 MMOL/L (3.5-5.1); SODIUM LEVEL 142 MMOL/L (136-145)
[2025-06-19 14:24] VITALS: BP 125/74; TEMP 98.3; O2SAT 98
== END 2025-06-19 14:45 | disposition home or self-care (01) ==
LOC: M ED 01:01 → UNDOADMIN 18:18 → M ED INP 18:18 → UNDODISIN 06-19 14:25 → M ED 06-19 14:45
DX: F29 Unspecified psychosis not due to a substance or known physiological condition (principal); R00.0 Tachycardia, unspecified; I45.10 Unspecified right bundle-branch block; E55.9 Vitamin D deficiency, unspecified; F32.A Depression, unspecified; Z79.1 Long term (current) use of non-steroidal anti-inflammatories (NSAID); Z79.899 Other long term (current) drug therapy
CPT/HCPCS: 36415; 80048; 80076; 80143; 80307; 82077; 82550; 82803; 83605; 83735; 84100; 84443; 84703; 85025; 93005; 93041; 94760; 96360; 96372; 99285; J1200; J1630; J2250

== ENCOUNTER 2025-06-26 21:22 | Emergency (ER) | payer OTHER ==
[~2025-06-26] VITALS: Ht 152.4 cm; Wt 77.4 kg
[~2025-06-26 21:22] MED LIST changes: +DICL100G10 TOP; +VITA500038 PO
[2025-06-27 06:49] VITALS: BP 122/68; TEMP 97.2; O2SAT 100
== END 2025-06-27 06:51 | disposition home or self-care (01) ==
LOC: M ED 21:22
DX: S93.602A Unspecified sprain of left foot, initial encounter (principal); Y92.230 Patient room in hospital as the place of occurrence of the external cause; Y93.9 Activity, unspecified; Y99.9 Unspecified external cause status; W01.0XXA Fall on same level from slipping, tripping and stumbling without subsequent striking against object, initial encounter; Z79.1 Long term (current) use of non-steroidal anti-inflammatories (NSAID); Z79.899 Other long term (current) drug therapy